=== PATIENT | female | born 1985 | race African-American/Black ===

== ENCOUNTER 2017-04-06 23:01 | Emergency (ER) | payer SELFPAY ==
[2017-04-06] MEDS ORDERED: LIDOCAINE 1%/EPI 1:100000 (50 ML MULTI DOSE VIAL) ONE (23:12)
[2017-04-06 23:44] LABS: BASOPHIL 0.3 % (0-2.0); EOSINOPHIL 0.9 % (0-4.5); MCH 29.4 pg (25.7-33.7); MCHC 32.4 g/dl (32.0-36.0); MEAN CELL VOLUME 90.9 fl (80-96); MEAN PLT VOLUME 7.3 fl (7.5-11.1); NEUTROPHILS 53.5 % (42.8-82.8); PLATELET COUNT 263 K/MM3 (134-434); RDW 14.1 % (11.6-15.6); WHITE BLOOD COUNT 5.9 K/mm3 (4.0-10.0)
[2017-04-06 23:45] VITALS: BMI 30.4
[2017-04-06 23:59] LABS: INR 1.24 (0.82-1.09); PROTHROMBIN TIME (PATIENT) 13.7 SEC (9.98-11.88)
[2017-04-07] MEDS ORDERED: CEFAZOLIN (PRE-DOCKED) 50 ML IVPB ONE (00:08)
[2017-04-07] MEDS ORDERED: CEFAZOLIN (PRE-DOCKED) 1 GM in DEXTROSE 5%-WATER - 50 ML IVPB ONE (00:09)
[2017-04-07] MEDS ORDERED: DIPHTH,PERTUSS(ACELL),TET 0.5 ML DISP.SYRIN IM ONE (00:09)
[2017-04-07] MEDS ORDERED: GENTAMICIN INJECTION 120 MG in DEXTROSE 5%-WATER - 250 ML IVPB SCH (00:15)
[2017-04-07 00:21] LABS: ALBUMIN 3.3 g/dl (3.4-5.0); ALK PHOS 57 U/L (45-117); ANION GAP 11 (8-16); BILIRUBIN,TOTAL 0.6 mg/dL (0.2-1.0); CALCIUM 7.7 mg/dL (8.5-10.1); CO2 22 mmol/L (21-32); CREATININE 0.9 mg/dL (0.55-1.02); GLUCOSE,RANDOM 152 mg/dL (74-106); SGOT/AST 16 U/L (15-37); SGPT/ALT 13 U/L (12-78); TOT PROT 5.7 g/dl (6.4-8.2)
[2017-04-07] MEDS ORDERED: PREMIXED IVPB ONE (00:22)
[2017-04-07] MEDS ORDERED: GENTAMICIN 80 MG IVPB ONE (00:22)
--- NOTE | 2017-04-07 00:43 | PDOC ---
History of Present Illness <Roe Cosme - Last Filed: 04/07/17 01:49> - General History Source: Patient Exam Limitations: No Limitations - History of Present Illness Initial Comments: 04/07/17 00:44 The patient is a 32 year old female, with significant past medical history of anemia, who presents today with a deep laceration on the left forearm that occurred approximately 45 minutes ago. The patients girlfriend was closing a heavy glass door at their home when the patient simultaneously attempted to push through the door with an outstretched left hand. The glass shattered and the patient accidentally cut her arm on the glass. The laceration was squirting blood across the room for a quick second. They immediately used towels to apply pressure as they waited for the ambulance to arrive. The patient became diaphoretic and had 1 episode of vomiting prior to arrival to the emergency room. The patient is right hand dominant. The patient denies any other injuries. Denies numbness or tingling in the left hand and fingers. Denies head trauma. Denies any previous suicide attempts. Denies fever, chills. Denies abdominal pain. Allergies: shellfish <Megan Adams - Last Filed: 04/07/17 01:53> - General Chief Complaint: Laceration Stated Complaint: ARM LACERATION Past History - Psycho/Social/Smoking Cessation Hx Suicidal Ideation: No Smoking History: Never smoked Hx Alcohol Use: No Drug/Substance Use Hx: No <Roe Cosme - Last Filed: 04/07/17 01:49> <Megan Adams - Last Filed: 04/07/17 01:53> - Past Medical History Allergies/Adverse Reactions: Allergies Allergy/AdvReac Type Severity Reaction Status Date / Time No Known Allergies Allergy Verified 04/06/17 23:26 Home Medications: Ambulatory Orders NK [No Known Home Medication] 04/06/17 Review of Systems - Review of Systems Able to Perform ROS?: Yes Comments:: 04/07/17 00:45 CONSTITUTIONAL: +pale, No fever, no chills, no fatigue EYES: No visual changes ENT: No ear pain, no sore throat CARDIOVASCULAR: No chest pain, no palpitations RESPIRATORY: No cough, no SOB GI: +one episode of vomiting. No abdominal pain, no nausea, no constipation, no diarrhea GENITOURINARY: No dysuria, no frequency, no hematuria MUSKULOSKELETAL: No backpain, no joint pain, no myalgias SKIN: +laceration on the left forearm. No rash NEURO: No headache <Megan Adams - Last Filed: 04/07/17 01:53> *Physical Exam - Vital Signs Last Vital Signs Temp Pulse Resp BP Pulse Ox 98 H 18 97/68 100 04/06/17 23:05 04/06/17 23:05 04/06/17 23:05 04/06/17 23:05 - Physical Exam Comments: NEURO: Fine touch is decreased of the hyper thenar eminence and the tips of the fourth and fifth digits <Roe Cosme - Last Filed: 04/07/17 01:49> - Vital Signs Last Vital Signs Temp Pulse Resp BP Pulse Ox 98 H 18 97/68 100 04/06/17 23:05 04/06/17 23:05 04/06/17 23:05 04/06/17 23:05 - Physical Exam Comments: 04/07/17 00:45 CONSTITUTIONAL: Pale - appearing; in mild distress; well-nourished HEAD: Normocephalic; atraumatic EYES: PERRL; EOM intact ENMT: External appears normal; normal oropharynx NECK: Supple; non-tender; no cervical lymphadenopathy CARD: Normal S1, S2; no murmurs, rubs, or gallops RESP: Normal chest excursion with respiration; breath sounds clear and equal bilaterally; no wheezes, rhonchi, or rales ABD: Soft, non-distended; non-tender; no palpable organomegaly, no palpable hernias EXT: Normal ROM in all four extremities; non-tender to palpation. SKIN: +Left forearm has approximately a 12 cm irregular laceration to the distal third along the ulnar aspect involving the wrist joint. The laceration is full thickness. Strong radial pulse on the left arm. Warm, dry, no rash <Megan Adams - Last Filed: 04/07/17 01:53> ED Treatment Course - LABORATORY CBC & Chemistry Diagram: 04/06/17 23:35 04/06/17 23:35 - ADDITIONAL ORDERS Additional order review: Laboratory Results 04/06/17 04/06/17 04/06/17 23:35 23:35 23:35 INR 1.24 H Sodium 142 Potassium 3.0 L Chloride 109 H Carbon Dioxide 22 Anion Gap 11 BUN 12 Creatinine 0.9 Creat Clearance w eGFR > 60 Random Glucose 152 H Calcium 7.7 L Total Bilirubin 0.6 AST 16 ALT 13 Alkaline Phosphatase 57 Total Protein 5.7 L Albumin 3.3 L Beta HCG, Quant < 1.0 Blood Type Antibody Screen Crossmatch Spec Expiration Date 04/06/17 04/06/17 23:30 23:30 INR Sodium Potassium Chloride Carbon Dioxide Anion Gap BUN Creatinine Creat Clearance w eGFR Random Glucose Calcium Total Bilirubin AST ALT Alkaline Phosphatase Total Protein Albumin Beta HCG, Quant Blood Type O NEGATIVE O NEGATIVE Antibody Screen Cancelled Negative Crossmatch See Detail Spec Expiration Date Cancelled 04/06/17 23:35 RBC 2.82 L MCV 90.9 MCHC 32.4 RDW 14.1 MPV 7.3 L Neutrophils % 53.5 Lymphocytes % 36.5 Monocytes % 8.8 Eosinophils % 0.9 Basophils % 0.3 - RADIOLOGY Radiology Studies Ordered: Category Date Time Status UPPER EXTREMITY CTA [CT] Stat CT Scan 04/06/17 23:40 Taken - Medications Given in the ED: ED Medications Discontinued Medications Generic Name Dose Route Start Last Admin Trade Name Freq PRN Reason Stop Dose Admin Diphtheria/Tetanus/Acell Pertussis 0.5 ml 04/07/17 00:09 04/07/17 00:37 Boostrix - IM 04/07/17 00:10 0.5 ml .ONCE ONE Administration <Roe Cosme - Last Filed: 04/07/17 01:49> - LABORATORY CBC & Chemistry Diagram: 04/06/17 23:35 04/07/17 01:06 - ADDITIONAL ORDERS Additional order review: Laboratory Results 04/06/17 04/06/17 04/06/17 23:35 23:35 23:35 INR 1.24 H Sodium 142 Potassium 3.0 L Chloride 109 H Carbon Dioxide 22 Anion Gap 11 BUN 12 Creatinine 0.9 Creat Clearance w eGFR > 60 Random Glucose 152 H Calcium 7.7 L Total Bilirubin 0.6 AST 16 ALT 13 Alkaline Phosphatase 57 Total Protein 5.7 L Albumin 3.3 L Beta HCG, Quant < 1.0 Blood Type Antibody Screen Crossmatch Spec Expiration Date 04/06/17 04/06/17 23:30 23:30 INR Sodium Potassium Chloride Carbon Dioxide Anion Gap BUN Creatinine Creat Clearance w eGFR Random Glucose Calcium Total Bilirubin AST ALT Alkaline Phosphatase Total Protein Albumin Beta HCG, Quant Blood Type O NEGATIVE O NEGATIVE Antibody Screen Cancelled Negative Crossmatch See Detail Spec Expiration Date Cancelled 04/06/17 23:35 RBC 2.82 L MCV 90.9 MCHC 32.4 RDW 14.1 MPV 7.3 L Neutrophils % 53.5 Lymphocytes % 36.5 Monocytes % 8.8 Eosinophils % 0.9 Basophils % 0.3 - RADIOLOGY Radiograph Interpretation: 04/07/17 00:45 EXAM: CT angiography of the left upper extremity IMAGES: 1893 EXAM DATE AND TIME: 2017-04-06 23:45:26.0 REASON FOR EXAM: Left forearm laceration rule out ulnar artery injury COMPARISON: No FINDINGS: Images were obtained from the antecubital region through the hand. The injury is to the ventral aspect of the wrist and distal forearm. There is a long segment of unopacified ulnar artery extending from the mid forearm to the wrist. This most likely represents ulnar artery injury resulting in thrombosis and/or dissection and thus nonopacification. Alternatively to thrombus or dissection, it could represent vasospasm. The radial artery is intact. Opacification of the palmar arch is most likely achieved via the radial artery. THIS DOCUMENT HAS BEEN ELECTRONICALLY SIGNED Angelo Rider MD 04/07/2017 00:38 EST - Medications Given in the ED: ED Medications Discontinued Medications Generic Name Dose Route Start Last Admin Trade Name Freq PRN Reason Stop Dose Admin Diphtheria/Tetanus/Acell Pertussis 0.5 ml 04/07/17 00:09 04/07/17 00:37 Boostrix - IM 04/07/17 00:10 0.5 ml .ONCE ONE Administration <Megan Adams - Last Filed: 04/07/17 01:53> Medical Decision Making - Medical Decision Making 04/07/17 00:52 Patient is a 32-year-old female with history of iron deficiency anemia and sickle cell trait who presents with atraumatic full-thickness laceration of the distal third of the left forearm with a suspected ulnar artery injury. On initial evaluation, patient was noted to be hypotensive, and pale appearing. Skin was loosely approximated and a pressure dressing was applied. CTA of the left upper extremity reveals a long segment of unopacified ulnar artery extending from the mid forearm to the rest which may be consistent with a thrombus versus a dissection. Patient's hematocrit is noted to be 25. Given the significant bleeding reported prior to arrival in the ER, we'll administer unit of packed cells. Patient has also received tetanus, Ancef and gentamicin. Patient will require transfer for vascular intervention and repair. 04/07/17 01:49 Patient accepted for transfer to hand surgery [facility] at [facility] with vascular consult. <Roe Cosme - Last Filed: 04/07/17 01:49> - Medical Decision Making 04/07/17 01:20 Two calls were placed to [facility]. Awaiting a call back. A call was placed to [facility] at 1:15am. 04/07/17 01:29 [facility] transfer center was called at 1:29am. Awaiting call back. The patient was accepted as a transfer to the ER. <Megan Adams - Last Filed: 04/07/17 01:53> *DC/Admit/Observation/Transfer - Transfer to Acute Care Facility Receiving Facility: [facility] Accepting Physician:: dr. ferrell Transfer comment: 04/07/17 01:50 pt accepted for transfer - Attestations Physician Attestion: 04/07/17 00:51 The documentation was prepared by the scribe under my direct supervision. I have reviewed the documentation which correctly represents the findings, medical decision-making and critical action taken by me. <Roe Cosme - Last Filed: 04/07/17 01:49> - Attestations Scribe Attestion: 04/07/17 00:46 Documentation prepared by MADI Duarte, acting as biomedical equipment tech for Roe Cosme MD. <Megan Adams - Last Filed: 04/07/17 01:53> Diagnosis at time of Disposition: Laceration of hand, complicated Qualifiers: Encounter type: initial encounter Laterality: left Qualified Code(s): S61.412A - Laceration without foreign body of left hand, initial encounter Ulnar artery injury Qualifiers: Encounter type: initial encounter Laterality: left Qualified Code(s): S55.002A - Unspecified injury of ulnar artery at forearm level, left arm, initial encounter - Discharge Dispostion Disposition: TRANSFER ACUTE CARE/OTHER HOSP Condition at time of disposition: Fair
[2017-04-07] MEDS ORDERED: ONDANSETRON 4 MG/2 ML VIAL IVPB ONE (00:48)
[2017-04-07] MEDS ORDERED: ONDANSETRON 4 MG/2 ML VIAL ONE (00:51)
[2017-04-07 01:44] LABS: ALBUMIN 3.1 g/dl (3.4-5.0); ANION GAP 8 (8-16); CALCIUM 7.6 mg/dL (8.5-10.1); CO2 24 mmol/L (21-32); CREATININE 0.8 mg/dL (0.55-1.02); GLUCOSE,RANDOM 103 mg/dL (74-106); SGOT/AST 15 U/L (15-37); SGPT/ALT 12 U/L (12-78); TOT PROT 5.6 g/dl (6.4-8.2)
[2017-04-07 01:45] LABS: ALK PHOS 55 U/L (45-117); BILIRUBIN,TOTAL 0.8 mg/dL (0.2-1.0)
[2017-04-07 02:35] VITALS: BP 111/69
[2017-04-07 03:06] VITALS: PULSE 80; TEMP 98.5
== END 2017-04-07 03:11 | disposition short-term general hospital (02) ==
LOC: JER 23:01
PROC: 3E0234Z Introduction of Serum, Toxoid and Vaccine into Muscle, Percutaneous Approach (ICD-10-PCS; principal; 2017-04-06)
PROC: 3E03329 Introduction of Other Anti-infective into Peripheral Vein, Percutaneous Approach (ICD-10-PCS; 2017-04-06)
PROC: 3E03329 Introduction of Other Anti-infective into Peripheral Vein, Percutaneous Approach (ICD-10-PCS; 2017-04-06)
PROC: 3E033GC Introduction of Other Therapeutic Substance into Peripheral Vein, Percutaneous Approach (ICD-10-PCS; 2017-04-06)
PROC: 30233N1 Transfusion of Nonautologous Red Blood Cells into Peripheral Vein, Percutaneous Approach (ICD-10-PCS; 2017-04-06)
DX: S55.0 Injury of ulnar artery at forearm level (principal); S51.812A Laceration without foreign body of left forearm, initial encounter; W25.XXXA Contact with sharp glass, initial encounter; Y93.89 Activity, other specified; Y92.018 Other place in single-family (private) house as the place of occurrence of the external cause; I95.89 Other hypotension; R11.2 Nausea with vomiting, unspecified; D64.9 Anemia, unspecified
CPT/HCPCS: 36415; 36430; 73206-TC-RT; 80053; 84702; 85025; 85610; 86850; 86900; 86901; 86922; 90715; 99285-25; P9038; P9058